=== PATIENT | female | born 1970 | race Caucasian/White ===

== ENCOUNTER 2016-09-09 08:14 | Emergency (ER) ==
[2016-09-09] MEDS ORDERED: TORADOL IM STA (08:24)
--- NOTE | 2016-09-09 08:27 | ED.PDOC ---
General ED Provider: Dr. JUJU MCDOWELL Chief Complaint: Toe Pain/Injury Stated Complaint: She injured the left foot yesterday, ever since it is swollen , hurts to walk. Time Seen by Physician: 08:25 Mode of Arrival: Walk-In Information Source: Patient Primary Care Provider: JUJU MCDOWELL-[facility] Nursing and Triage Documentation Reviewed and Agree: Yes Musculoskeletal Complaint Exam - Ankle/Foot Complaint/Exam Location of Injury: Reports: Left, Toe #4, Toe #5 Mechanism of Injury: Reports: Trauma Symptoms Are: Reports: Still present Onset of Pain: Reports: Immediate Initial Severity: Moderate Current Severity: Moderate Location: Reports: Discrete Character: Reports: Aching, Throbbing Alleviating: Reports: None Aggravating: Reports: Movement, Weight bearing Able to Bear Weight: Yes Associated Signs and Symptoms: Reports: Swelling, Bruising. Denies: Redness, Fever, Weakness, Numbness, Tingling Gout Risk Factors: Reports: None Related Surgical History: Reports: None Lower Extremity Findings: Present: Swelling, Ecchymosis Tenderness: Present: Midfoot, Metatarsals, Digits Limited Range of Motion: Present: Inversion, Eversion Differential Diagnosis: Contusion, Closed Fracture, Sprain Review of Systems - Review Of Systems Constitutional: Reports: No symptoms Eyes: Reports: No symptoms Ears, Nose, Mouth, Throat: Reports: No symptoms Respiratory: Reports: No symptoms Cardiac: Reports: No symptoms GI: Reports: No symptoms : Reports: No symptoms Musculoskeletal: Reports: Joint pain, Joint swelling Skin: Reports: No symptoms Neurological: Reports: No symptoms Endocrine: Reports: No symptoms Hematologic/Lymphatic: Reports: No symptoms All Other Systems: Reviewed and Negative Past Medical History - Past Medical History Endocrine: Reports: DM 2 Cardiovascular: Reports: CAD, Hypertension Respiratory: Reports: None Hematological: Reports: None Gastrointestinal: Reports: None Genitourinary: Reports: None Neuro/Psych: Reports: Bipolar Disorder Musculoskeletal: Reports: Arthritis Cancer: Reports: None 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) - Surgical History General Surgical History: Reports: , CABG - Family History Family History: Reports: None - Social History Smoking Status: Current every day smoker Smoking Cessation Counseling Time: > 3 min - 10 min Hx Substance Use: No Alcohol Screening: None Physical Exam - Physical Exam Appearance: Well-appearing, Obese Pain Distress: Moderate Eyes: SKINNY, EOMI, Conjunctiva clear ENT: Ears normal, Nose normal, Oropharynx normal Respiratory: Airway patent, Breath sounds clear, Breath sounds equal, Respirations nonlabored Cardiovascular: RRR, Pulses normal, No rub, No murmur GI/: Soft, Nontender, No masses, Bowel sounds normal, No Organomegaly Musculoskeletal: Normal strength, ROM intact, No edema, No calf tenderness Skin: Warm, Dry, Normal color Neurological: Sensation intact, Motor intact, Reflexes intact, Cranial nerves intact, Alert, Oriented Psychiatric: Affect appropriate, Mood appropriate Interpretation - Radiology Interpretation Radiology Interpretation By: Radiologist Radiology Results: Positive Critical Care Note - Critical Care Note Total Time (mins): 0 Course - Course Orders, Labs, Meds: Orders Category Date Time Status Ketorolac Tromethamine [Toradol] MEDS 09/09/16 08:24 Discontinued 60 mg IM ONCE STA FOOT, LEFT 3 VIEWS Stat RADS 09/09/16 08:24 Completed Medications Discontinued Medications Generic Name Dose Route Start Last Admin Trade Name Freq PRN Reason Stop Dose Admin Ketorolac Tromethamine 60 mg 09/09/16 08:24 09/09/16 08:36 Toradol IM 09/09/16 08:25 60 mg ONCE STA Administration Vital Signs: Temp Pulse Resp BP Pulse Ox 09/09/16 08:14 98.4 F 76 20 104/68 97 Departure - Departure Time of Disposition: 08:54 Disposition: HOME SELF-CARE Discharge Problem: Closed fracture of fifth toe of left foot Qualifiers: Encounter type: initial encounter Qualifier Code: (S92.502A) Displaced unspecified fracture of left lesser toe(s), initial encounter for closed fracture Instructions: Toe Fracture (ED) Condition: Stable Pt referred to PMD for follow-up: Yes Additional Instructions: F/u at [facility] so u can get to [facility] wrap f/u at [facility] 3-4 days Prescriptions: Hydrocodone Bit/Acetaminophen [[place] 7.5-325] 1 each PO Q8H #14 tablet Allergies/Adverse Reactions: Allergies Penicillins Adverse Reaction (Verified 09/09/16 08:20) Home Medications: Ambulatory Orders Hum Insulin NPH/Reg Insulin Hm [Humulin 70-30] 100 unit SUBCUT BID 09/09/16 Hydrocodone Bit/Acetaminophen [[place] 7.5-325] 1 each PO Q8H #14 tablet 09/09/16 Isosorbide Dinitrate 10 mg PO DAILY 09/09/16 Lisinopril 10 mg PO DAILY 09/09/16 Metoprolol Tartrate [Lopressor] 100 mg PO DAILY 09/09/16 Disposition Discussed With: Patient
[2016-09-09 08:40] VITALS: BP 104/68; TEMP 98.4; BMI 26.6
--- NOTE | 2016-09-09 08:42 | DI ---
EXAM: Three views of the left foot. History: Trauma of the left foot. Findings: Mildly displaced fracture of the proximal phalanx of the fifth digit. No dislocation. M ild polyarticular joint space narrowing. Minimal enthesiopathy at the insertion of the Achilles ten don. Impression: Mildly displaced fracture of the proximal phalanx of the fifth digit.
== END 2016-09-09 09:10 | disposition home or self-care (01) ==
LOC: ED 08:14
DX: S92.512A Displaced fracture of proximal phalanx of left lesser toe(s), initial encounter for closed fracture (principal); F17.210 Nicotine dependence, cigarettes, uncomplicated
CPT/HCPCS: 96372; 99282

== ENCOUNTER 2016-09-12 09:11 | Outpatient (CLI) ==
--- NOTE | 2016-09-12 10:08 | MAMMO ---
EXAM: Bilateral digital screening mammogram History: Baseline screening Findings: MLO and CC views of bilateral breasts demonstrate scattered fibroglandular breast parench yma. Focal asymmetry within the upper-outer quadrant of the left breast. Benign bilateral breast c alcifications. No suspicious microcalcifications. Impression: Indeterminate asymmetry within the upper-outer quadrant of the left breast. Recommend further evaluation with spot compression views and possible ultrasound. BIRADS 0
== END 2016-09-12 09:12 | disposition home or self-care (01) ==
LOC: RAD 09:11
PROVIDERS: ATTEND Emergency Medicine
DX: Z12.31 Encounter for screening mammogram for malignant neoplasm of breast (principal)

== ENCOUNTER 2016-09-19 08:47 | Outpatient (CLI) ==
--- NOTE | 2016-09-24 12:03 | MAMMO ---
PRELIMINARY EXAM: Digital left diagnostic mammogram and ultrasound HISTORY: Asymmetry in the left breast COMPARISON: Screening mammogram 09/12/2016 FINDINGS: Spot compression views of the left breast were performed digitally and demonstrate scatte red fibroglandular breast density (25 - 50%). The area of concern is in the left upper outer quadran t. The area of mild asymmetry does not completely press out. There is minimal linear parenchymal as ymmetry noted. No additional nodule or mass is identified. Left breast ultrasound of the left upper outer quadrant. There is no cyst, calcification or nodule i dentified. There is some mild dense parenchyma identified.. IMPRESSION: Asymmetric density in the left breast, correlating with mildly prominent parenchymal st filipe on the ultrasound and no focal nodule or suspicious mass identified. RECOMMENDATION: Return to annual screening mammogram BIRADS category II: Benign findings
== END 2016-09-19 08:48 | disposition home or self-care (01) ==
LOC: RAD 08:47
PROVIDERS: ATTEND Emergency Medicine
DX: N63 Unspecified lump in breast (principal)

== ENCOUNTER 2016-09-28 12:18 | Outpatient (CLI) ==
[2016-09-28 13:01] LABS: BASOPHILS # (AUTO) 0.1 K/uL (0-0.2); BASOPHILS % (AUTO) 0.8 % (0.0-3.0); EOSINOPHILS # (AUTO) 0.2 K/ul (0.0-0.7); HEMOGLOBIN 12.9 g/dl (12.0-16.0); IMMATURE GRANULOCYTE % (AUTO) 0.3 % (0.0-5.0); LYMPHOCYTES # (AUTO) 2.7 K/uL (0.60-3.4); MEAN CORPUSCULAR HEMOGLOBIN 29.9 pg (27.0-31.0); MEAN CORPUSCULAR HGB CONC 33.9 (31.8-35.4); MONOCYTES # (AUTO) 0.3 K/uL (0.4-2.0); MONOCYTES % (AUTO) 5.1 (0-10); NEUTROPHILS % (AUTO) 47.8; PLATELET COUNT 235 10^3/uL (140-440); RED BLOOD COUNT 4.32 10^6/ul (4.20-5.40); WHITE BLOOD COUNT 6.25 K/ul (4.6-10.2)
[2016-09-28 13:28] LABS: ALBUMIN 3.8 g/dL (3.4-5.0); ALBUMIN/GLOBULIN RATIO 1.09; ANION GAP 12.1; BILIRUBIN,TOTAL 0.45 mg/dL (0.00-1.20); BUN/CREATININE RATIO 18.57; CALCIUM 8.9 mg/dL (8.2-10.2); CHOL/HDL RATIO 3.8 (4.5-5.5); CREATININE 0.7 mg/dL (0.60-1.30); POTASSIUM 4.1 mmol/L (3.5-5.10); TOTAL PROTEIN 7.3 g/dL (6.4-8.2)
== END 2016-09-28 12:19 | disposition home or self-care (01) ==
LOC: LAB 12:18
PROVIDERS: ATTEND Emergency Medicine
DX: E78.5 Hyperlipidemia, unspecified (principal); I11.9 Hypertensive heart disease without heart failure; I25.10 Atherosclerotic heart disease of native coronary artery without angina pectoris; E11.9 Type 2 diabetes mellitus without complications
CPT/HCPCS: 36415; 80053; 80061; 83036; 84480; 85025

== ENCOUNTER 2016-10-12 08:23 | Emergency (ER) ==
[2016-10-12 08:27] VITALS: BP 117/73; TEMP 98.4; BMI 31.6
--- NOTE | 2016-10-12 08:35 | ED.PDOC ---
General ED Provider: Dr. LIZ PHELAN Chief Complaint: Tooth Problem Stated Complaint: dental pain Time Seen by Physician: 08:33 (seen with tracet) Mode of Arrival: Walk-In Information Source: Patient Exam Limitations: No limitations [facility] and Triage Documentation Reviewed and Agree: Yes EENT Complaint Exam - Dental/Oral Complaint/Exam Mechanism of Injury: No known trauma Onset/Duration: chronic Symptoms Are: Still present Timing: Constant Initial Severity: Moderate Current Severity: Moderate Character: Reports: Throbbing Aggravating: Reports: Heat, Cold, Chewing Alleviating: Reports: None Associated Signs and Symptoms: Denies: Swelling, Discharge, Fever, Foul odor, Foul taste in mouth Related History: Reports: Similar episode Cardiac Risk Factors: Reports: Diabetes, Hypertension Dental/Oral Surgical History: Reports: None Tooth Findings: Present: Gross caries Cervical Lymphadenopathy Present: No Facial Swelling Present: No Bleeding Present: No Oropharynx Findings: Absent: Clots, Active bleeding Septal Hematoma: No Foreign Body Present: No Dysphagia Present: No Drooling Present: No Asymmetrical Tonsillar Swelling Present: No Uvula Midline: No Linnea-tonsillar Fluctuence: No Trismus Present: No Palatal Petechiae Present: No Scarlatinaform Rash Present: No Teeth Picture: 1 - decay Differential Diagnoses: Dental Caries Review of Systems - Review Of Systems Constitutional: Reports: No symptoms Eyes: Reports: No symptoms Ears, Nose, Mouth, Throat: Reports: No symptoms Respiratory: Reports: No symptoms Cardiac: Reports: No symptoms GI: Reports: No symptoms : Reports: No symptoms Musculoskeletal: Reports: No symptoms Skin: Reports: No symptoms Neurological: Reports: No symptoms Endocrine: Reports: No symptoms Hematologic/Lymphatic: Reports: No symptoms All Other Systems: Reviewed and Negative Past Medical History - Past Medical History Endocrine: Reports: DM 2 Cardiovascular: Reports: CAD, Hypertension Respiratory: Reports: None Hematological: Reports: None Gastrointestinal: Reports: None Genitourinary: Reports: None Neuro/Psych: Reports: Bipolar Disorder Musculoskeletal: Reports: Arthritis Cancer: Reports: None Last Menstrual Period: post menopause - Surgical History General Surgical History: Reports: , CABG - Family History Family History: Reports: None - Social History Smoking Status: Current every day smoker Hx Substance Use: No Alcohol Screening: None Physical Exam - Physical Exam Appearance: Well-appearing, No pain distress, Well-nourished Eyes: SKINNY, EOMI, Conjunctiva clear ENT: Ears normal, Nose normal, Oropharynx normal Respiratory: Airway patent, Breath sounds clear, Breath sounds equal, Respirations nonlabored Cardiovascular: RRR, Pulses normal, No rub, No murmur GI/: Soft, Nontender, No masses, Bowel sounds normal, No Organomegaly Musculoskeletal: Normal strength, ROM intact, No edema, No calf tenderness Skin: Warm, Dry, Normal color Neurological: Sensation intact, Motor intact, Reflexes intact, Cranial nerves intact, Alert, Oriented Psychiatric: Affect appropriate, Mood appropriate Critical Care Note - Critical Care Note Total Time (mins): 0 Course - Course Vital Signs: Temp Pulse Resp BP Pulse Ox 10/12/16 08:23 98.4 F 80 14 117/73 96 Departure - Departure Time of Disposition: 08:35 (seen with nurse at all times ) Disposition: HOME SELF-CARE Discharge Problem: Toothache Instructions: Toothache (ED) Condition: Good Pt referred to PMD for follow-up: Yes Additional Instructions: Please call your Family Physician as soon as possible to schedule a follow-up appointment. Prescriptions: Clindamycin HCl [Cleocin HCl] 300 mg PO Q8HR #20 capsule Hydrocodone/Acetaminophen [[place] 10-325 Tablet] 1 each PO Q8HR #20 tablet Allergies/Adverse Reactions: Allergies Penicillins Adverse Reaction (Verified 10/12/16 08:27) Home Medications: Ambulatory Orders Hum Insulin NPH/Reg Insulin Hm [Humulin 70-30] 100 unit SUBCUT BID 09/09/16 Isosorbide Dinitrate 10 mg PO DAILY 09/09/16 Lisinopril 10 mg PO DAILY 09/09/16 Metoprolol Tartrate [Lopressor] 100 mg PO DAILY 09/09/16 Clindamycin HCl [Cleocin HCl] 300 mg PO Q8HR #20 capsule 10/12/16 Hydrocodone/Acetaminophen [[place] 10-325 Tablet] 1 each PO Q8HR #20 tablet Disposition Discussed With: Patient
== END 2016-10-12 08:43 | disposition home or self-care (01) ==
LOC: ED 08:23
DX: K08.89 Other specified disorders of teeth and supporting structures (principal); K02.7 Dental root caries; F17.210 Nicotine dependence, cigarettes, uncomplicated
CPT/HCPCS: 99282

== ENCOUNTER 2016-11-02 21:21 | Outpatient (CLI) | END 2016-11-02 21:22 | disposition home or self-care (01) | LOC: AMBL 21:21 | PROVIDERS: ATTEND Family Medicine | DX: R07.9 Chest pain, unspecified (principal); M79.602 Pain in left arm; R53.1 Weakness; E11.9 Type 2 diabetes mellitus without complications; Z95.5 Presence of coronary angioplasty implant and graft ==

== ENCOUNTER → 2016-11-06 | Outpatient (CLI) ==
[2016-11-07 02:17] VITALS: BMI 29.6
== END ==
LOC: AMBL 23:56
PROVIDERS: ATTEND Internal Medicine Geriatric Medicine
DX: R07.9 Chest pain, unspecified (principal); R53.83 Other fatigue; R73.9 Hyperglycemia, unspecified

== ENCOUNTER 2016-11-07 00:03 | Emergency (ER) ==
[2016-11-07] MEDS: SODIUM CHLORIDE 1,000 ML IV STA (00:25)
[2016-11-07] MEDS: ZOFRAN 4 MG/2 ML IVP STA (00:35)
[2016-11-07] MEDS: NITROGLYCERIN 25 MG in PREMIX D5W 250 ML VIAL 1 VIAL IV SCH (00:54)
[2016-11-07] MEDS ORDERED: MORPHINE 2 MG/ML SYRINGE ONE (01:28)
[2016-11-07] MEDS: MORPHINE 2 MG/ML SYRINGE IVP STA (01:28)
[2016-11-07 02:17] VITALS: TEMP 98.3; BMI 29.6
[2016-11-07 02:39] VITALS: BP 106/66
[2016-11-07 02:53] LABS: HEMATOCRIT 35.9 % (37.0-47.0); HEMOGLOBIN 12.5 g/dl (12.0-16.0); MEAN CORPUSCULAR HEMOGLOBIN 29.8 pg (27.0-31.0); MEAN CORPUSCULAR HGB CONC 34.8 (31.8-35.4); MEAN CORPUSCULAR VOLUME 85.7 fl (81.0-99.0); PLATELET COUNT 200 10^3/uL (140-440); RED BLOOD COUNT 4.19 10^6/ul (4.20-5.40)
[2016-11-07 02:54] LABS: BASOPHILS % (AUTO) 0.7 % (0.0-3.0); EOSINOPHILS # (AUTO) 0.2 K/ul (0.0-0.7); EOSINOPHILS % (AUTO) 2.9 % (0.0-7.0); LYMPHOCYTES # (AUTO) 3.2 K/uL (0.60-3.4); MONOCYTES # (AUTO) 0.4 K/uL (0.4-2.0); MONOCYTES % (AUTO) 6.3 (0-10); NEUTROPHILS # (AUTO) 3.1 K/ul (2.0-6.9); NEUTROPHILS % (AUTO) 44.5
[2016-11-07 02:55] LABS: ANION GAP 15.4; BASOPHILS # (AUTO) 0.1 K/uL (0-0.2); BLOOD UREA NITROGEN 13 mg/dL (7-18); CARBON DIOXIDE 28 mmol/L (21-32); CHLORIDE 104 mmol/L (98-107); IMMATURE GRANULOCYTE % (AUTO) 0.6 % (0.0-5.0); POTASSIUM 3.4 mmol/L (3.5-5.10); SODIUM 144 mmol/L (136-145)
[2016-11-07 02:56] LABS: ALANINE AMINOTRANSFERASE 31 U/L (12-78); ALBUMIN 3.7 g/dL (3.4-5.0); ALBUMIN/GLOBULIN RATIO 1.23; ALKALINE PHOSPHATASE 103 U/L (42-98); ASPARTATE AMINO TRANSFERASE 34 U/L (15-37); BILIRUBIN,TOTAL 0.29 mg/dL (0.00-1.20); BUN/CREATININE RATIO 19.11; CALCIUM 9.4 mg/dL (8.2-10.2); CREATININE 0.68 mg/dL (0.60-1.30); GLUCOSE 129 mg/dL (70-110); TOTAL PROTEIN 6.7 g/dL (6.4-8.2)
--- NOTE | 2016-11-07 05:40 | ED.PDOC ---
General ED Provider: Dr. JANE KATE Chief Complaint: Chest Pain Stated Complaint: Patient is a 45 year old female who has a history of CAD with 5 bipasses awhile back and stent 8 months ago whos stats she hasbeen taking her medications including plavix and aspirin states she started having chest pain 3 days ago. Was taken to the [facility] ER but signed out AMA stating she was afriad of not getting ride back to [facility]. Describes the pain as substernal last 45 mins at times with associated nausea and shortness of breath. current chest pain is 9/10 Time Seen by Physician: 15:00 Mode of Arrival: Ambulance Information Source: Patient, EMT Primary Care Provider: JUJU WILKINSON Nursing and Triage Documentation Reviewed and Agree: Yes Cardiovascular Complaint Exam - Chest Pain Complaint/Exam Onset: Gradual Duration: 3 days Symptoms Are: Still present Timing: Intermittent Length of Chest Pain Episodes: 45 Initial Severity: Moderate Current Severity: Severe Location: Reports: Midsternal Pain Radiates: Reports: Back Character: Reports: Crushing, Dull, Heaviness Aggravating: Reports: None Alleviating: Reports: None Associated Signs and Symptoms: Reports: Diaphoresis, Nausea, Short of air Related History: Reports: Similar episode, Current [place] Inhibitors Related Surgical History: Reports: PTCA/Stent, CABG History of Healthcare-Acquired Pneumonia: Reports: No AMI/ACS Risk Factors: Reports: Myocardial Infarction, Diabetes, Nitroglycerine use, Hypertension, Smoking, Dyslipidemia TAD Risk Factors: Reports: Hypertension, Smoking Pulmonary Embolism Risk Factors: Reports: Smoking Prior Care for this Complaint: Yes Recent Stress Test: No Recent Echo/LV Function: No Chest Picture: 1 - chest pain area If Risk Factors for AMI/ACS Consider: EKG, Cardiac Enzymes Documents Reviewed: EMS records, Labs, Imaging, EKG Differential Diagnoses: Acute HI, Unstable Angina Quality Indicators For Acute HI or Cardiac Chest Pain: EKG in 10min. Quality Indicator For Non-Traumatic Chest Pain/Syncope: EKG Performed Review of Systems - Review Of Systems Constitutional: Reports: Diaphoresis, Loss of appetite Eyes: Reports: No symptoms Ears, Nose, Mouth, Throat: Reports: No symptoms Respiratory: Reports: Short of air Cardiac: Reports: Chest pain GI: Reports: Nausea, Poor appetite : Reports: No symptoms Musculoskeletal: Reports: No symptoms Skin: Reports: No symptoms Neurological: Reports: Anxiety Endocrine: Reports: No symptoms Hematologic/Lymphatic: Reports: No symptoms All Other Systems: Reviewed and Negative Past Medical History - Past Medical History Endocrine: Reports: DM 2 Cardiovascular: Reports: CAD, Hypertension Respiratory: Reports: None Hematological: Reports: None Gastrointestinal: Reports: None Genitourinary: Reports: None Neuro/Psych: Reports: Bipolar Disorder Musculoskeletal: Reports: Arthritis Cancer: Reports: None Last Menstrual Period: 9 YEARS AGO - Surgical History General Surgical History: Reports: , CABG, Stent Placement - Family History Family History: Reports: None - Social History Smoking Status: Current every day smoker, Light tobacco smoker, Vaping Hx Substance Use: No Alcohol Screening: None - Immunizations Tetanus Shot up to Date: Yes Physical Exam - Physical Exam Appearance: Ill-appearing Ill-appearing: Severe Pain Distress: Severe Neck: Supple Respiratory: Airway patent, Breath sounds clear, Breath sounds equal, Respirations nonlabored Cardiovascular: RRR, Pulses normal, No rub, No murmur GI/: Soft, Nontender, No masses, Bowel sounds normal, No Organomegaly Musculoskeletal: Normal strength, ROM intact, No edema, No calf tenderness Skin: Warm, Dry, Normal color Neurological: Sensation intact, Motor intact, Reflexes intact, Cranial nerves intact, Alert, Oriented Interpretation - Radiology Interpretation Radiology Interpretation By: ED Physician Radiology Results: Negative Exam Interpreted: Portable CXR - Band Master Rate: Normal Rhythm: Sinus Ectopy: None - EKG Interpretation Time of EKG #1: 00:16 Rate: Normal Rhythm: Sinus ST Segment: Normal Interpretation: Anterior infact in v1 -v6 Critical Care Note - Critical Care Note Total Time (mins): 40 Course - Course Hematology/Chemistry: 11/07/16 00:10 11/07/16 00:10 Orders, Labs, Meds: Lab Review 11/07/16 00:10 WBC 7.00 RBC 4.19 L Hgb 12.5 Hct 35.9 L MCV 85.7 MCH 29.8 MCHC 34.8 RDW Coeff of Nelly 12.7 Plt Count 200 Immature Gran % (Auto) 0.6 Neut % (Auto) 44.5 Lymph % (Auto) 45.0 [place] % (Auto) 6.3 Eos % (Auto) 2.9 Baso % (Auto) 0.7 Immature Gran # (Auto) 0.0 Neut # 3.1 Lymph # 3.2 [place] # 0.4 Eos # 0.2 Baso # 0.1 D-Dimer (Manual) 311.90 Sodium 144 Potassium 3.4 L Chloride 104 Carbon Dioxide 28 Anion Gap 15.4 BUN 13 Creatinine 0.68 Estimated GFR (MDRD) 94.00 BUN/Creatinine Ratio 19.11 Glucose 129 H Calcium 9.4 Total Bilirubin 0.29 AST 34 ALT 31 Alkaline Phosphatase 103 H Troponin I < 0.0100 B-Natriuretic Peptide < 10 Total Protein 6.7 Albumin 3.7 Globulin 3.0 Albumin/Globulin Ratio 1.23 Orders Category Date Time Status EKG-(ED ONLY) Stat CARDIO 11/07/16 01:47 Completed IV [ED IV/MEDIPORT/POWERPORT] .ONCE EMERGENCY 11/07/16 02:22 Active BNP [B-TYPE NATRIURETIC PEPTIDE] Stat LAB 11/07/16 00:10 Completed CBC W/ AUTO DIFF Stat LAB 11/07/16 00:10 Completed COMPREHENSIVE METABOLIC PANEL Stat LAB 11/07/16 00:10 Completed D-DIMER Stat LAB 11/07/16 00:10 Completed TROPONIN I Stat LAB 11/07/16 00:10 Completed 0.9 % Sodium Chloride [Saline Flush] MEDS 11/07/16 02:22 Discontinued 1 syr IVF PRN PRN Dextrose 5 % in Water [Premix D5w 250 ml Vial] 1 vial MEDS 11/07/16 02:30 Discontinued Nitroglycerin/D5w [Nitroglycerin] 25 mg IV 3 mcg/min Morphine Sulfate [Morphine 2 mg/ml Syringe] MEDS 11/07/16 02:19 Discontinued 2 mg IVP ONCE STA Ondansetron HCl/Pf [Zofran 4 mg/2 ml] MEDS 11/07/16 02:19 Discontinued 4 mg IVP ONCE STA Sodium Chloride 0.9% [Sodium Chloride] 1,000 ml MEDS 11/07/16 02:19 Discontinued IV 100 mls/hr CHEST, 1V AP ONLY Stat RADS 11/07/16 02:05 Taken Medications Discontinued Medications Generic Name Dose Route Start Last Admin Trade Name Freq PRN Reason Stop Dose Admin Nitroglycerin/Dextrose 25 mg/ 250 mls @ 1.8 mls/hr 11/07/16 02:30 11/07/16 00 :54 DEXTROSE 5 % IN WATER IV 3 mcg/min .Q24H NIEVES 1.8 mls/hr Protocol Administration 3 MCG/MIN Sodium Chloride 1,000 mls @ 100 mls/hr 11/07/16 02:19 11/07/16 00:25 Sodium Chloride IV 11/07/16 12:18 100 mls/hr .Q10H STA Administration Morphine Sulfate 2 mg 11/07/16 02:19 11/07/16 01:28 Morphine 2 Mg/Ml Syringe IVP 11/07/16 02:20 2 mg ONCE STA Administration Ondansetron HCl 4 mg 11/07/16 02:19 11/07/16 00:35 Zofran 4 Mg/2 Ml IVP 11/07/16 02:20 4 mg ONCE STA Administration Sodium Chloride 1 syr 11/07/16 02:22 11/07/16 00:35 Saline Flush IVF 1 syr PRN PRN Administration To flush IV Vital Signs: Temp Pulse Resp BP Pulse Ox 11/07/16 00:54 74 16 106/66 11/07/16 00:03 98.3 F 77 16 119/71 96 SUSI Risk Score Age >/= 65: No >/= 3 CAD Risk Factors: Yes Known CAD (Stenosis >/= 50%): Yes ASA Use in Past 7 Days: Yes Severe Angina (>/= 2 episodes in 24 hours): Yes EKG ST Changes >/= 0.5mm: No Postive Cardiac Marker: No SUSI Total Score: 4 SUSI Risk Score: Risk Score Odds of by 30D 0 0.1 (0.1-0.2) 1 0.3 (0.2-0.3) 2 0.4 (0.3-0.5) 3 0.7 (0.6-0.9) 4 1.2 (1.0-1.5) 5 2.2 (1.9-2.6) 6 3.0 (2.5-3.6) 7 4.8 (3.8-6.1) Departure - Departure Time of Disposition: 00:50 Disposition: TSF SHORT-TRM HOSP Discharge Problem: Chest pain, Unstable angina Condition: Good Pt referred to PMD for follow-up: No Allergies/Adverse Reactions: Allergies Penicillins Adverse Reaction (Verified 11/07/16 02:03) Swelling Home Medications: Ambulatory Orders Hum Insulin NPH/Reg Insulin Hm [Humulin 70-30] 100 unit SUBCUT BID 09/09/16 Isosorbide Dinitrate 10 mg PO DAILY 09/09/16 Lisinopril 10 mg PO DAILY 09/09/16 Metoprolol Tartrate [Lopressor] 100 mg PO DAILY 09/09/16 Clopidogrel Bisulfate [Plavix] 75 mg PO DAILY 11/07/16 Hydrocodone/Acetaminophen [Hydrocodon-Acetaminoph 7.5-325] 1 tab PO Q8H PRN 12/16 Pravastatin Sodium [Pravachol] 20 mg PO BEDTIME 11/07/16
--- NOTE | 2016-11-07 07:07 | DI ---
EXAM: Chest one view, frontal view only. HISTORY: Chest pain. COMPARISON: None available. FINDINGS: The heart size is normal. There has been median sternotomy. There is no pulmonary vascul ar congestion. The lungs are clear. No pleural effusion or pneumothorax is seen. No acute osseous abnormality is identified. ACDF changes noted. IMPRESSION: No acute cardiopulmonary process.
== END 2016-11-07 02:15 | disposition short-term general hospital (02) ==
LOC: ED 00:03
DX: R07.9 Chest pain, unspecified (principal); I20.0 Unstable angina; I11.9 Hypertensive heart disease without heart failure; F17.210 Nicotine dependence, cigarettes, uncomplicated; R11.0 Nausea; R06.02 Shortness of breath; E11.9 Type 2 diabetes mellitus without complications; Z95.1 Presence of aortocoronary bypass graft; Z95.0 Presence of cardiac pacemaker; Z79.899 Other long term (current) drug therapy
CPT/HCPCS: 36415; 80053; 83880; 84484; 85025; 85379; 93005; 93010; 96365; 96375; 99285

== ENCOUNTER 2016-11-07 02:15 | Outpatient (CLI) ==
[2016-11-07 02:17] VITALS: BMI 29.6
== END 2016-11-07 02:16 | disposition home or self-care (01) ==
LOC: AMBL 02:15
PROVIDERS: ATTEND Internal Medicine Geriatric Medicine
DX: R07.9 Chest pain, unspecified (principal)

== ENCOUNTER 2016-11-08 18:48 | Outpatient (CLI) ==
[2016-11-07 02:17] VITALS: BMI 29.6
== END 2016-11-08 18:49 | disposition home or self-care (01) ==
LOC: AMBL 18:48
PROVIDERS: ATTEND Internal Medicine
DX: R73.9 Hyperglycemia, unspecified (principal)

== ENCOUNTER 2016-12-15 12:41 | Outpatient (CLI) | END 2016-12-15 12:42 | disposition home or self-care (01) | LOC: AMBL 12:41 | PROVIDERS: ATTEND Internal Medicine Geriatric Medicine | DX: R11.2 Nausea with vomiting, unspecified (principal); R10.9 Unspecified abdominal pain; R07.9 Chest pain, unspecified; E11.9 Type 2 diabetes mellitus without complications ==

== ENCOUNTER 2017-01-30 14:07 | Outpatient (CLI) | END 2017-01-30 14:08 | disposition home or self-care (01) | LOC: CAR 14:07 | PROVIDERS: ATTEND Nurse Practitioner Family | DX: R40.0 Somnolence (principal); R06.83 Snoring; Z86.69 Personal history of other diseases of the nervous system and sense organs ==

== ENCOUNTER 2017-05-17 16:25 | Emergency (ER) ==
[2017-05-17] MEDS ORDERED: ZOFRAN 4 MG/2 ML IVP STA ×2 (16:28→17:58)
[2017-05-17] MEDS ORDERED: ZOFRAN 4 MG/2 ML ONE (16:29)
[2017-05-17] MEDS ORDERED: SODIUM CHLORIDE 1,000 ML IV STA (16:30)
[2017-05-17 16:32] VITALS: BP 130/93; TEMP 97; BMI 30.7
--- NOTE | 2017-05-17 17:35 | ED.PDOC ---
General ED Provider: Dr. LIZ PHELAN Chief Complaint: Chest Pain Stated Complaint: chest pain Time Seen by Physician: 16:26 (chest pain since fall 5 days ago but this is a different pain) Mode of Arrival: Walk-In Information Source: Patient, Family Exam Limitations: No limitations Primary Care Provider: JUJU WILKINSON Referred to ED by: Other (history obtained from pt and her roomate mulugeta pt has extensive cardiac history) Nursing and Triage Documentation Reviewed and Agree: Yes (no chest pain prior to the fall, but with her friend and demond at bedside ) Reviewed sepsis parameters & appropriate labs ordered?: Yes (stated the pain is different from the injury induced pain 5 days ago) System Inflammatory Response Syndrome: Not Applicable Sepsis Protocol: For patient's 13 years and over: Temp is 96.8 and below OR 101 and greater Pulse >90 BPM Resp >20/minute Acutely Altered Mental Status Are patient's symptoms suggestive of a new infection, such as: -Pneumonia -Skin, Soft Tissue -Endocarditis -UTI -Bone, Joint Infection -Implantable Device -Acute Abdominal Infection -Wound Infection -Meningitis -Blood Stream Catheter Infection -Unknown System Inflammatory Response Syndrome: Not Applicable Cardiovascular Complaint Exam - Chest Pain Complaint/Exam Onset: Sudden (fall on the left chest has been c/o pain left sided since fall 5 days agoBUT STATED TODAT STARTED HAVING MORE PAIN NAUSEA) Duration: 5 days Symptoms Are: Still present Timing: Constant (x 5 days left lateral chest pain under left breast at all times ) Length of Chest Pain Episodes: 5 days Initial Severity: Moderate Current Severity: Moderate Location: Reports: Discrete (left lateral chest wall) Character: Reports: Aching Aggravating: Reports: None Alleviating: Reports: None Associated Signs and Symptoms: Reports: Cough. Denies: Diaphoresis, Nausea, Vomiting, Fever, Palpitations, Hemoptysis (no neck pain), Back pain, Abdominal pain, Dizziness, Short of air, Calf pain, Calf swelling Related History: Reports: Current Angelo Inhibitors (, plavix) Related Surgical History: Reports: Cardiac Cath, PTCA/Stent, CABG History of Healthcare-Acquired Pneumonia: Reports: No AMI/ACS Risk Factors: Reports: Myocardial Infarction, Sedentary, Diabetes, Obesity, Hypertension, Smoking, Dyslipidemia TAD Risk Factors: Reports: Hypertension, Smoking Pulmonary Embolism Risk Factors: Reports: None Prior Care for this Complaint: No Recent Stress Test: No Recent Echo/LV Function: No JVD Present: No Subcutaneous Emphysema Present: No Diminshed Breath Sounds: No Reproducible Chest Wall Pain: Yes (left lateral chest wall pain) Bilateral Pulses Present: Yes Unequal Pulses Noted: No If Risk Factors for AMI/ACS Consider: EKG, Cardiac Enzymes Differential Diagnoses: ACS, Chest Wall Pain, Lower Resp. Infection Quality Indicators For Acute NM or Cardiac Chest Pain: EKG in 10min. Review of Systems - Review Of Systems Constitutional: Reports: No symptoms Eyes: Reports: No symptoms Ears, Nose, Mouth, Throat: Reports: No symptoms Respiratory: Reports: Cough Cardiac: Reports: Chest pain GI: Reports: No symptoms : Reports: No symptoms Musculoskeletal: Reports: No symptoms Skin: Reports: No symptoms Neurological: Reports: No symptoms Endocrine: Reports: No symptoms Hematologic/Lymphatic: Reports: No symptoms All Other Systems: Reviewed and Negative Past Medical History - Past Medical History Previously Healthy: Yes Endocrine: Reports: DM 2 Cardiovascular: Reports: CAD, Hypertension Respiratory: Reports: None Hematological: Reports: None Gastrointestinal: Reports: None Genitourinary: Reports: None Neuro/Psych: Reports: Bipolar Disorder Musculoskeletal: Reports: Arthritis Cancer: Reports: None Last Menstrual Period: n/a - Surgical History General Surgical History: Reports: , CABG, Stent Placement - Family History Family History: Reports: None - Social History Smoking Status: Current every day smoker, Light tobacco smoker, Vaping Hx Substance Use: No Alcohol Screening: None - Immunizations Tetanus Shot up to Date: Yes Physical Exam - Physical Exam Appearance: Well-appearing, No pain distress, Well-nourished Eyes: SKINNY, EOMI, Conjunctiva clear ENT: Ears normal, Nose normal, Oropharynx normal Respiratory: Airway patent, Breath sounds clear, Breath sounds equal, Respirations nonlabored Cardiovascular: RRR, Pulses normal, No rub, No murmur GI/: Soft, Nontender, No masses, Bowel sounds normal, No Organomegaly Musculoskeletal: ROM intact (left lateral chest wall pain) Skin: Warm, Dry, Normal color Neurological: Sensation intact, Motor intact, Reflexes intact, Cranial nerves intact, Alert, Oriented Psychiatric: Affect appropriate, Mood appropriate Physician Notification - Case Discussed Physician Notified: [facility] ED Time of Notification: 17:57 (TRANSFER NOW) Critical Care Note - Critical Care Note Total Time (mins): 0 Course - Course Hematology/Chemistry: 05/17/17 16:26 05/17/17 16:26 Orders, Labs, Meds: Lab Review 05/17/17 05/17/17 05/17/17 16:26 16:26 16:26 WBC 8.17 RBC 4.87 Hgb 14.4 Hct 41.3 MCV 84.8 MCH 29.6 MCHC 34.9 RDW Coeff of Nelly 12.9 Plt Count 248 Immature Gran % (Auto) 0.2 Neut % (Auto) 49.3 Lymph % (Auto) 41.5 Garrard % (Auto) 5.0 Eos % (Auto) 3.3 Baso % (Auto) 0.7 Immature Gran # (Auto) 0.0 Neut # 4.0 Lymph # 3.4 Garrard # 0.4 Eos # 0.3 Baso # 0.1 Sodium 139 Potassium 3.8 Chloride 102 Carbon Dioxide 30 Anion Gap 10.8 BUN 5 L Creatinine 0.68 Estimated GFR (MDRD) 93.00 BUN/Creatinine Ratio 7.35 Glucose 212 H Calcium 9.2 Total Bilirubin 0.3 AST 21 ALT 21 Alkaline Phosphatase 145 H Total Creatine Kinase 54 Troponin I < 0.0100 Total Protein 7.5 Albumin 3.8 Globulin 3.7 Albumin/Globulin Ratio 1.03 Serum , Qual Negative Influenza A (Rapid) Influenza B (Rapid) 05/17/17 16:44 WBC RBC Hgb Hct MCV MCH MCHC RDW Coeff of Nelly Plt Count Immature Gran % (Auto) Neut % (Auto) Lymph % (Auto) Garrard % (Auto) Eos % (Auto) Baso % (Auto) Immature Gran # (Auto) Neut # Lymph # Garrard # Eos # Baso # Sodium Potassium Chloride Carbon Dioxide Anion Gap BUN Creatinine Estimated GFR (MDRD) BUN/Creatinine Ratio Glucose Calcium Total Bilirubin AST ALT Alkaline Phosphatase Total Creatine Kinase Troponin I Total Protein Albumin Globulin Albumin/Globulin Ratio Serum , Qual Influenza A (Rapid) Negative by naat Influenza B (Rapid) Negative by naat Orders Category Date Time Status EKG-(ED ONLY) Stat CARDIO 05/17/17 16:29 Completed ED IV/MEDIPORT/POWERPORT .ONCE EMERGENCY 05/17/17 16:29 Active CBC W/ AUTO DIFF Stat LAB 05/17/17 16:26 Completed COMPREHENSIVE METABOLIC PANEL Stat LAB 05/17/17 16:26 Completed CREATINE KINASE Stat LAB 05/17/17 16:26 Completed FLU A/B MOLECULAR Stat LAB 05/17/17 16:44 Completed MOLECULAR GROUP A STREP Stat LAB 05/17/17 16:44 Completed SERUM Stat LAB 05/17/17 16:26 Completed TROPONIN I Stat LAB 05/17/17 16:26 Completed 0.9 % Sodium Chloride [Saline Flush] MEDS 05/17/17 16:29 Active 1 syr IVF PRN PRN Ondansetron HCl/Pf [Zofran 4 mg/2 ml] MEDS 05/17/17 16:29 Discontinued 8 mg .ROUTE .STK-MED ONE Ondansetron HCl/Pf [Zofran 4 mg/2 ml] MEDS 05/17/17 16:28 Discontinued 8 mg IVP ONCE STA Sodium Chloride 0.9% [Sodium Chloride] 1,000 ml MEDS 05/17/17 16:[address] ABDOMEN/PELVIS WO CONTRAST Stat RADS 05/17/17 16:[address] CHEST W/O CONTRAST Stat RADS 05/17/17 16:31 Ordered Medications Generic Name Dose Route Start Last Admin Trade Name Freq PRN Reason Stop Dose Admin Sodium Chloride 1 syr 05/17/17 16:29 05/17/17 16:34 Saline Flush IVF 1 syr PRN PRN Administration To flush IV Discontinued Medications Generic Name Dose Route Start Last Admin Trade Name Freq PRN Reason Stop Dose Admin Sodium Chloride 1,000 mls @ 1,000 mls/hr 05/17/17 16:30 05/17/17 16:39 Sodium Chloride IV 05/17/17 17:29 1,000 mls/hr BOLUS STA Administration Ondansetron HCl 8 mg 05/17/17 16:28 05/17/17 16:33 Zofran 4 Mg/2 Ml IVP 05/17/17 16:29 Not Given ONCE STA Vital Signs: Temp Pulse Resp BP Pulse Ox 05/17/17 16:26 97.0 F L 86 17 130/93 H 97 SUSI Risk Score SUSI Risk Score: Risk Score Odds of by 30D 0 0.1 (0.1-0.2) 1 0.3 (0.2-0.3) 2 0.4 (0.3-0.5) 3 0.7 (0.6-0.9) 4 1.2 (1.0-1.5) 5 2.2 (1.9-2.6) 6 3.0 (2.5-3.6) 7 4.8 (3.8-6.1) Departure - Departure Time of Disposition: 18:00 Disposition: TSF SHORT-TRM HOSP Discharge Problem: Chest pain Instructions: Chest Pain (ED) Condition: Good Pt referred to PMD for follow-up: Yes IPMP verified?: No Additional Instructions: Please call your Family Physician as soon as possible to schedule a follow-up appointment. Allergies/Adverse Reactions: Allergies Penicillins Adverse Reaction (Verified 11/07/16 02:03) Swelling Home Medications: Ambulatory Orders Hum Insulin NPH/Reg Insulin Hm [Humulin 70-30] 100 unit SUBCUT BID 09/09/16 Isosorbide Dinitrate 10 mg PO DAILY 09/09/16 Lisinopril 10 mg PO DAILY 09/09/16 Metoprolol Tartrate [Lopressor] 100 mg PO DAILY 09/09/16 Clopidogrel Bisulfate [Plavix] 75 mg PO DAILY 11/07/16 Hydrocodone/Acetaminophen [Hydrocodon-Acetaminoph 7.5-325] 1 tab PO Q8H PRN 12/16 Pravastatin Sodium [Pravachol] 20 mg PO BEDTIME 11/07/16 Disposition Discussed With: Patient, Family
[2017-05-17] MEDS ORDERED: MORPHINE 2 MG/ML SYRINGE IVP STA (17:58)
--- NOTE | 2017-05-17 18:07 | CT ---
EXAM: CT chest without contrast HISTORY: Cough TECHNIQUE: Multi-slice transaxial helical with coronal and sagittal reformed images. 3-D volume dano dered images of the bony thorax are provided. CONTRAST: None COMPARISON: None FINDINGS: Post CABG changes are noted. The ascending thoracic aorta is minimally ectatic to 32 mm. The aortic arch and descending thoracic aorta have normal caliber. No pericardial or pleural effusio ns are evident. The heart size is normal. No suspicious lymphadenopathy is detected. The dependent l ungs are atelectatic. No pulmonary nodules or masses are detected. The hepatic attenuation is mildly low diffusely relative to the spleen. The hepatic surface contours are subtly nodular. Umbilical vein is recannulated. The main portal vein is enlarged up to 13 mm. The spleen is enlarged up to 13 cm. The solid organs are otherwise normal in their visualized porti ons of the upper abdomen. The gallbladder is present without biliary dilatation. The bones are free of suspicious osteolytic or osteoblastic lesions. No acute fractures are apprecia tita. IMPRESSION: 1. No acute cardiopulmonary disease. 2. Post CABG changes. 3. Minimal ectasia of the ascending thoracic aorta to 32 mm. 4. Hepatic cirrhosis and diffuse hepatic steatosis with portal hypertension manifested by splenomega ly, recanalized umbilical vein, an enlarged portal vein.
--- NOTE | 2017-05-17 18:09 | CT ---
EXAM: CT abdomen and pelvis without contrast HISTORY: Abdominal pain, fall 4 days ago TECHNIQUE: Multi-slice transaxial helical with coronal and sagittal reformed images COMPARISON: CT chest from 05/17/2017 FINDINGS: Please refer to the CT chest report from 05/17/2017 for details on this region. The hepati c attenuation is diffusely low relative to the spleen. In addition, the hepatic surface contours are nodular. The spleen is enlarged up to 14.1 cm. The umbilical vein is recannulated. The portal vei n is enlarged up to 13 mm. No hepatic lesions are detected within the confines of a noncontrast stud y. The pancreas and adrenal glands are normal. The gallbladder is contracted. There is no biliary dilatation. The kidneys have normal size and attenuation. Ureters are nondilated. The nonopacified bladder is n ormal. The uterus and adnexa are grossly normal. The intestines including appendix have normal caliber without evidence of obstruction or acute inflam mation. The abdominal aorta has normal caliber with calcified atheromatous plaque. No lymphadenopat hy or ascites are detected. The bones are free of suspicious osteolytic or osteoblastic lesions. No acute fracture, listhesis, di slocation, or subluxation are appreciated. IMPRESSION: 1. Hepatic cirrhosis with stigmata of portal hypertension including splenomegaly, enlarged portal ve in, and 15 of the umbilical vein. 2. No acute bony or visceral injuries. 3. Aortic atherosclerosis.
== END 2017-05-17 18:30 | disposition short-term general hospital (02) ==
LOC: ED 16:25
DX: R07.9 Chest pain, unspecified (principal); I25.2 Old myocardial infarction; E11.9 Type 2 diabetes mellitus without complications; I10 Essential (primary) hypertension; I25.810 Atherosclerosis of coronary artery bypass graft(s) without angina pectoris; E78.5 Hyperlipidemia, unspecified; F17.210 Nicotine dependence, cigarettes, uncomplicated; E66.9 Obesity, unspecified; Z95.5 Presence of coronary angioplasty implant and graft; W19.XXXA Unspecified fall, initial encounter
CPT/HCPCS: 36415; 80053; 82550; 84484; 84703; 85025; 87502; 87651; 93005; 93010; 96374; 96375; 96376; 99285

== ENCOUNTER 2017-05-17 18:38 | Outpatient (CLI) ==
[2017-05-17 16:32] VITALS: BMI 30.7
== END 2017-05-17 18:39 | disposition short-term general hospital (02) ==
LOC: AMBL 18:38
PROVIDERS: ATTEND Internal Medicine
DX: R07.9 Chest pain, unspecified (principal); R07.89 Other chest pain; S29.9XXA Unspecified injury of thorax, initial encounter; Z86.79 Personal history of other diseases of the circulatory system; W19.XXXA Unspecified fall, initial encounter